=== PATIENT | male | born 1975 | race Two or more races ===

== ENCOUNTER 2019-11-19 11:15 | Emergency (ER) | payer SELFPAY ==
[~2019-11-19] VITALS: Ht 162.6 cm; Wt 84.5 kg
[2019-11-19 11:22] VITALS: Ht 162.6 cm; Wt 84.5 kg
[2019-11-19 12:00] LABS: CALC OSMOLALITY 273 mosm/kg (275-300); CALCIUM 8.8 mg/dL (8.5-10.1); CARBON DIOXIDE 27.5 mmol/L (21.0-32.0); CHLORIDE - SERUM 98 mmol/L (98-107); CREATININE - SERUM 0.8 mg/dL (0.6-1.3); GLUCOSE 136 mg/dL (74-106); POTASSIUM - SERUM 3.6 mmol/L (3.5-5.1); SODIUM 136 mmol/L (136-145); UREA NITROGEN 13 mg/dL (7-18); eGFR NON AFRICAN AMERICAN > 90 mL/min (90-120)
[2019-11-19 12:06] LABS: ALBUMIN 3.8 g/dL (3.4-5.0); ALKALINE PHOSPHATASE 98 U/L (30-120); ALT (SGPT) 99 U/L (10-68); BILIRUBIN - TOTAL 0.72 mg/dL (0.2-1.3); PROTEIN - SERUM 7.7 g/dL (6.4-8.2)
[2019-11-19 12:24] LABS: HEMATOCRIT 45.6 % (42.0-54.0); HEMOGLOBIN 15.7 g/dL (13.5-17.5); MCH 31.8 pg (26.0-34.0); MCHC 34.4 g/dL (31.0-37.0); MCV 92.5 fL (80.0-100.0); PLATELET COUNT 173 10x3/uL (130-400); RBC 4.93 10x6/uL (4.20-6.10); RDW 13.4 % (11.5-14.5); WBC 22.6 10x3/uL (4.8-10.8)
[2019-11-19] MEDS ORDERED: IBUPROFEN800 MG PO (13:32)
[2019-11-19] MEDS ORDERED: CYCLOBENZAPRINE10 MG PO (13:32)
[2019-11-19] MEDS ORDERED: PREDNISONE10 MG PO (13:32)
[2019-11-19 13:58] LABS: LYMPHOCYTES 16 % (15-50); MONOCYTES 14 % (2-11); NEUTROPHILS 70 % (40-80); PLATELET ESTIMATE NORMAL
[2019-11-19 14:06] VITALS: BP 128/72
== END 2019-11-19 14:07 | disposition home or self-care (01) ==
LOC: D.ER 11:15
PROVIDERS: Emergency Medicine
DX: S99.822A Other specified injuries of left foot, initial encounter (principal); R10.31 Right lower quadrant pain; R07.89 Other chest pain; W11.XXXA Fall on and from ladder, initial encounter; Y93.9 Activity, unspecified; Y92.9 Unspecified place or not applicable